=== PATIENT | female | born 1955 | race Caucasian/White ===

== ENCOUNTER → 2016-02-21 15:33 | Outpatient (CLI) | payer BC ==
[2016-02-21 16:28] LABS: BASOPHILS 0.4 % (0.0-2.0); EOSINOPHILS 1.8 % (0-7); HEMATOCRIT 41.9 % (36.0-48.0); HEMOGLOBIN 13.9 g/dL (12-16); IMMATURE GRANULOCYTES 0.2 % (0-5); LYMPHOCYTES 32.7 % (15-50); MCH 31.2 pg (26.0-34.0); MCHC 33.2 g/dL (31.0-37.0); MCV 94.2 fL (80.0-100.0); MEAN PLATELET VOLUME 11.1 fL (7.4-10.4); MONOCYTES 7.6 % (2-11); NEUTROPHILS 57.3 % (40-80); PLATELET COUNT 186 10x3/uL (130-400); RBC 4.45 10x6/uL (4.00-5.40); WBC 5.5 10x3/uL (4.8-10.8)
[2016-02-21 17:34] LABS: ALBUMIN 3.7 g/dL (3.4-5.0); ANION GAP 11.9 mmol/L (8-16); BILIRUBIN - TOTAL 0.5 mg/dL (0.2-1.3); CALCIUM 8.9 mg/dL (8.5-10.1); CARBON DIOXIDE 28.9 mmol/L (21.0-32.0); CREATININE - SERUM 0.9 mg/dL (0.6-1.3); POTASSIUM - SERUM 3.8 mmol/L (3.5-5.1); PRE-ALBUMIN 19.4 mg/dL (18.0-35.7); PROTEIN - SERUM 6.6 g/dL (6.4-8.2)
== END | disposition home or self-care (01) ==
LOC: D.LAB 15:33
PROVIDERS: Internal Medicine
DX: R53.83 Other fatigue (principal)

== ENCOUNTER → 2016-02-28 13:50 | Outpatient (CLI) | payer BC | END | disposition home or self-care (01) | LOC: D.MRI 02-24 15:00 | DX: M25.511 Pain in right shoulder (principal); M54.6 Pain in thoracic spine ==